=== PATIENT | male | born 1955 | race Caucasian/White ===

== ENCOUNTER → 2016-04-03 | Outpatient (CLI) | payer OTHER ==
[~2016-04-03] MED LIST: NORCO 325 MG-51 TAB PO
== END ==
LOC: COL.RAD 07:52
DX: C18.7 Malignant neoplasm of sigmoid colon (principal)
CPT/HCPCS: Q9967

== ENCOUNTER 2020-08-24 07:30 | Outpatient (RCR) | payer MEDICARE ==
[2020-08-19 08:57] VITALS: BP 111/75; PULSE 111; TEMP 98.8
--- NOTE | 2020-08-20 09:26 | NUR ---
Pt arrived via ambulatory to [facility] #13.Pt observed alert and orientated x 3,respirations even and unlabored.Pt requesting periphreal access to be done and removed each day with IV abx.This nurse attempted to educate about risks of insrting new site each day.Per pt he has port a cath that was previously accessed during his hospital stay.Pt refuses to have port accessed for IV abx.Dr Beni Laura nurse called to review options.Order received to access periphreally each day.H&P requested from office and received.Attempted to call [facility] for education and assist with IV site.Attepted x 1 in right f/a with no success.[employer] called for assistance.#22g in right f/a x 2 attempts by CLARA Holm.Pt has IV abx daily and refuses to leave site in after abx.INT removed after abx administered.Pt discharge ambulatory until towmorrow.
[2020-08-20 10:38] VITALS: BP 104/70; PULSE 110; TEMP 97
[2020-08-21 08:00] VITALS: BP 108/68; PULSE 102; TEMP 98.8
[2020-08-22 08:34] VITALS: BP 99/68; PULSE 106; TEMP 98.9
[2020-08-23 08:54] VITALS: BP 98/66; PULSE 108; TEMP 98.4
[~2020-08-24] VITALS: Ht 172.7 cm; Wt 76.3 kg
[~2020-08-24 07:30] MED LIST changes: +ACTIGALL 300MG300 MG PO; +DAZIDOX10 MG PO; +DULCOLAX STOOL100 MG PO; +MAG-OX 400400 MG/TAB PO; +MINOCYCLIN100 MG/CAP PO; +PROTONIX 40MG T40 MG PO; +SENNA-LAX8.6 MG PO; +SYNTHROID 0.10.15 MG PO; +TRIAMCINOLONE A15 G1 TP; +TYLENOL 325MG325 MG PO; +VASCEPA1 GM PO; +XALATAN EYE DROPS OD; +ZOFRAN ODT4 MG PO
[2020-08-24 08:23] LABS: ALBUMIN 3.4 gm/dL (3.5-5.0); BILIRUBIN,TOTAL 9.1 mg/dL (0.0-1.0); CREATININE, serum 0.66 (0.66-1.25); TOTAL PROTEIN 7.3 gm/dL (6.4-8.2)
[2020-08-24 08:32] VITALS: BP 105/67; PULSE 101; TEMP 98.6
[2020-08-24 08:53] LABS: THYROID STIMULATING HORMONE 2.61 uIU/mL (0.465-4.680)
--- NOTE | 2020-08-27 15:21 | NUR ---
Call received from Dr Dimitri Berrios nurse.[facility].ocancel blood cultures per nurse.Acct to be closed.
== END 2020-08-27 15:22 | disposition still patient (30) ==
LOC: EUO 07:30
PROVIDERS: Internal Medicine
DX: C18.7 Malignant neoplasm of sigmoid colon (principal); E03.9 Hypothyroidism, unspecified; D64.9 Anemia, unspecified; A40.9 Streptococcal sepsis, unspecified
CPT/HCPCS: J0696

== ENCOUNTER 2020-09-18 20:29 | Emergency (ER) | payer MEDICARE ==
[~2020-09-18] VITALS: Ht 172.7 cm; Wt 72.3 kg
[2020-09-18 21:15] LABS: HEMOGLOBIN 10.3 g/dl (13.5-18.0); MEAN CELL VOLUME 107 fl (80.0-100.0); MEAN CORPUSCULAR HEMOGLOBIN 35 pg (27.0-31.0); MEAN CORPUSCULAR HGB CONC 33 g/dl (33.0-37.0); MEAN PLATELET VOLUME 12.5 fl (7.4-10.4); PLATELET COUNT 83 K/mm3 (130-400); RED BLOOD COUNT 2.95 M/mm3 (4.20-5.60); REDCELL DISTRIBUTION WIDTH-CV 18.3 % (11.5-14.5)
[2020-09-18 21:18] LABS: HEMATOCRIT 31.5 % (42.0-52.0)
[2020-09-18 21:26] LABS: ALBUMIN 3.5 gm/dL (3.5-5.0); BILIRUBIN,TOTAL 3.2 mg/dL (0.0-1.0); CREATININE, serum 0.99 (0.66-1.25); POTASSIUM 3.8 mmol/L (3.4-5.0); TOTAL PROTEIN 6.9 gm/dL (6.4-8.2)
[2020-09-18 21:50] LABS: BAND 15 % (0-10); EOSINOPHIL 1 % (0-4); LYMPHOCYTE 8 % (20.0-51.0); NEUTROPHILS 75 % (42.0-75.2); PLATELET ESTIMATE DECREASED (NORMAL)
[2020-09-18 21:53] LABS: ANISOCYTOSIS 1+; HYPOCHROMIA 1+
[2020-09-18 21:54] LABS: TEAR DROP CELLS 1+
[2020-09-18 23:35] LABS: COLLECTION METHOD CLEAN CATCH
[2020-09-18 23:43] LABS: MUCOUS Present /lpf; PH 5 (5-8); SQUAMOUS EPITHELIAL 0-2 /hpf; URINE APPEARANCE Hazy; URINE BACTERIA None Seen /hpf; URINE BILIRUBIN Negative (NEGATIVE); URINE BLOOD Negative (NEGATIVE); URINE COLOR Amber; URINE GLUCOSE Negative (NEGATIVE); URINE KETONE Negative (NEGATIVE); URINE LEUKOCYTE ESTERASE Negative (NEGATIVE); URINE NITRATE Negative (NEGATIVE); URINE PROTEIN(semi-quant) 1+ (NEGATIVE); URINE RBC 0-2 /hpf; URINE UROBILINOGEN Negative (NEGATIVE)
[2020-09-19 01:05] VITALS: BP 80/58; PULSE 134; TEMP 101.7
== END 2020-09-19 01:30 | disposition short-term general hospital (02) ==
LOC: COL.ER 20:29
PROVIDERS: Personal Emergency Response Attendant
DX: J18.1 Lobar pneumonia, unspecified organism (principal); A41.9 Sepsis, unspecified organism; Z85.038 Personal history of other malignant neoplasm of large intestine; Z90.49 Acquired absence of other specified parts of digestive tract
CPT/HCPCS: J0456; J2270; J2405; J2543; J7030; J7050; J7060